=== PATIENT | male | born 2000 | race Caucasian/White ===

== ENCOUNTER 2024-07-25 04:54 | Emergency (ER) | payer OTHER ==
[~2024-07-25] VITALS: Ht 180.3 cm; Wt 79.1 kg
[2024-07-25] MEDS: traMADol 50 MG TAB PO ONE (06:31)
[2024-07-25 07:34] LABS: KETONE, URINE AUTO RFX NEGATIVE (NEGATIVE); LEUKOCYTE ESTERASE UR AUTO RFX NEGATIVE (NEGATIVE); NITRITE, URINE AUTO RFX NEGATIVE (NEGATIVE); RBC, URINE AUTO RFX 0 /HPF (0-3); SQUAM EPITHELIAL CELL UR AURFX 0 /HPF (0-6); WBC, URINE AUTO RFX 1 /HPF (0-3)
[2024-07-25 08:39] LABS: Trichomonas vaginalis (AMP) NOT DETECTED (NEGATIVE)
[2024-07-25 09:02] LABS: GC DNA AMPLIFICATION NEGATIVE (NEGATIVE)
[2024-07-25 09:17] VITALS: BP 117/63; TEMP 98.6; O2SAT 99
== END 2024-07-25 09:21 | disposition home or self-care (01) ==
LOC: M ED 04:54
DX: N50.812 Left testicular pain (principal)